=== PATIENT | male | born 1990 | race African-American/Black ===

== ENCOUNTER 2016-09-21 16:14 | Emergency (ER) | payer MEDICAID, OTHER ==
[2016-09-21] MEDS ORDERED: KETOROLAC TROMETHAMINE 30 MG/ML VIAL IM ONE (21:45)
[2016-09-21] MEDS ORDERED: ACETAMINOPHEN 325 MG TABLET PO ONE (21:45)
[2016-09-21 23:31] VITALS: BP 127/71
== END 2016-09-21 23:34 | disposition home or self-care (01) ==
LOC: EMS 16:14
DX: S01.81XA Laceration without foreign body of other part of head, initial encounter (principal); F17.210 Nicotine dependence, cigarettes, uncomplicated; Z91.018 Allergy to other foods; W22.8XXA Striking against or struck by other objects, initial encounter; Y93.89 Activity, other specified; Y92.89 Other specified places as the place of occurrence of the external cause; Y99.0 Civilian activity done for income or pay
CPT/HCPCS: 96372; 99283; J1885

== ENCOUNTER 2017-07-29 16:10 | Emergency (ER) | payer MEDICAID ==
[~2017-07-29] VITALS: Ht 180.3 cm; Wt 71.4 kg
[2017-07-29 16:19] VITALS: BP 135/71
== END 2017-07-29 18:22 | disposition home or self-care (01) ==
LOC: EMS 16:12
DX: F41.9 Anxiety disorder, unspecified (principal); F17.210 Nicotine dependence, cigarettes, uncomplicated; Z91.013 Allergy to seafood; Z91.018 Allergy to other foods
CPT/HCPCS: 99284

== ENCOUNTER 2017-08-06 05:45 | Emergency (ER) | payer MEDICAID ==
[~2017-08-06] VITALS: Ht 180.3 cm; Wt 70.0 kg
[2017-08-06 07:52] LABS: AMPHET/METH SCREEN,URINE NEGATIVE (NEGATIVE); BARBITURATE SCREEN, URINE NEGATIVE (NEGATIVE); BENZODIAZEPINES SCREEN,URINE NEGATIVE (NEGATIVE); CANNABINOID SCREEN,URINE POSITIVE (NEGATIVE); COCAINE SCREEN,URINE NEGATIVE (NEGATIVE); METHADONE SCREEN, URINE NEGATIVE (NEGATIVE); OPIATE SCREEN,URINE NEGATIVE (NEGATIVE)
[2017-08-06 07:53] LABS: PHENCYCLIDINE SCREEN,URINE NEGATIVE (NEGATIVE)
[2017-08-06 10:00] VITALS: BP 118/77
[2017-08-06] MEDS ORDERED: ACETAMINOPHEN 500 MG TABLET PO ONE (10:30)
== END 2017-08-06 10:51 | disposition home or self-care (01) ==
LOC: EMS 05:46
DX: S01.82XA Laceration with foreign body of other part of head, initial encounter (principal); S11.92XA Laceration with foreign body of unspecified part of neck, initial encounter; S01.02XA Laceration with foreign body of scalp, initial encounter; S61.211A Laceration without foreign body of left index finger without damage to nail, initial encounter; S61.212A Laceration without foreign body of right middle finger without damage to nail, initial encounter; S83.92XA Sprain of unspecified site of left knee, initial encounter; F17.210 Nicotine dependence, cigarettes, uncomplicated; Z91.013 Allergy to seafood; Z91.018 Allergy to other foods; V43.52XA Car driver injured in collision with other type car in traffic accident, initial encounter; Y93.89 Activity, other specified; Y92.89 Other specified places as the place of occurrence of the external cause; Y99.8 Other external cause status
CPT/HCPCS: 12001; 12052; 29505; 70450; 99285

== ENCOUNTER 2023-05-29 00:46 | Emergency (ER) | payer MEDICAID ==
[~2023-05-29] VITALS: Ht 180.3 cm; Wt 74.0 kg
[2023-05-29 00:48] VITALS: BP 114/78; PULSE 65; RESP 17; TEMP 98.2
[2023-05-29] MEDS ORDERED: FLUORESCEIN SODIUM 1 MG STRIP OU ONE (01:00)
[2023-05-29] MEDS ORDERED: IBUPROFEN 600 MG TABLET PO ONE (01:00)
[2023-05-29] MEDS ORDERED: PROPARACAINE HCL 0.5% 15 ML OPHTHALMIC SOLUTION OD ONE (01:00)
[2023-05-29] MEDS ORDERED: GENTOS OD (01:30)
[2023-05-29] MEDS ORDERED: GENTAMICIN SULFATE 0.3% OPHTHALMIC SOLUTION 5 ML OD ONE (01:30)
[2023-05-29] MEDS ORDERED: IBUP-1492 PO (01:30)
== END 2023-05-29 01:49 | disposition home or self-care (01) ==
LOC: EMS 00:47
DX: S05.01XA Injury of conjunctiva and corneal abrasion without foreign body, right eye, initial encounter (principal); F41.9 Anxiety disorder, unspecified; F17.210 Nicotine dependence, cigarettes, uncomplicated; F12.90 Cannabis use, unspecified, uncomplicated; Z91.018 Allergy to other foods; X58.XXXA Exposure to other specified factors, initial encounter; Y93.89 Activity, other specified; Y92.89 Other specified places as the place of occurrence of the external cause; Y99.8 Other external cause status
CPT/HCPCS: 99283; 99284